=== PATIENT | female | born 1990 | race Caucasian/White ===

== ENCOUNTER → 2018-07-06 | Outpatient (CLI) | payer BC ==
--- NOTE | 2018-07-06 14:57 | Diagnostic Imaging Report ---
PROCEDURE: CT head without contrast. TECHNIQUE: Multiple contiguous axial images were obtained through the brain without the use of intravenous contrast. INDICATION: Migraine headache. FINDINGS: The ventricles and sulci are within normal limits. There is no hydrocephalus or cerebral edema. There is no midline shift or mass effect. There is no intracranial mass, hemorrhage, or extra-axial fluid collection. The visualized paranasal sinuses and mastoid air cells are clear. There are no regional areas of decreased attenuation appreciated to suggest an acute CVA. IMPRESSION: No acute intracranial abnormality. Dictated by: Dictated on workstation # [id number]
== END ==
LOC: RAD FS 14:30
PROVIDERS: ATTEND Nurse Practitioner Family
DX: G43.001 Migraine without aura, not intractable, with status migrainosus (principal)
CPT/HCPCS: 70450

== ENCOUNTER 2018-10-18 14:00 | Outpatient (CLI) | payer BC | END 2018-10-18 14:30 | disposition home or self-care (01) | LOC: SLEEP 14:00 | PROVIDERS: ATTEND Psychiatry & Neurology Neurology | DX: G47.33 Obstructive sleep apnea (adult) (pediatric) (principal) ==

== ENCOUNTER 2019-02-22 12:54 | Emergency (ER) | payer BC ==
[~2019-02-22] VITALS: Ht 157.4 cm; Wt 111.3 kg
[2019-02-22 13:23] LABS: BACTERIA,URINE MODERATE /HPF; BILIRUBIN,URINE NEGATIVE (NEGATIVE); CLARITY,URINE SL CLOUDY; COLOR,URINE YELLOW; GLUCOSE, URINE (UA) NEGATIVE (NEGATIVE); HCG,QUALITATIVE URINE NEGATIVE (NEGATIVE); KETONES,URINE NEGATIVE (NEGATIVE); LEUKOCYTE ESTERASE ,URINE TRACE (NEGATIVE); NITRITE,URINE NEGATIVE (NEGATIVE); PROTEIN,URINE NEGATIVE (NEGATIVE)
--- NOTE | 2019-02-22 13:59 | ED Abdominal Pain ---
General Chief Complaint: Abdominal/GI Problems Stated Complaint: LT SIDED ABD PAIN Source of Information: Patient History of Present Illness Date Seen by Provider: Feb 22, 2019 Time Seen by Provider: 13:59 Initial Comments 28-year-old female with left flank pain that has been present since Thursday night. This is been getting more severe to the point that today she tried going to the clinic. Because the pain was so severe at the clinic they referred her to the emergency department. She has not had pain like this before. She denies seeing any blood in her stool. She has been having diarrhea since Thursday when th e pain started. She last had a menstrual period week ago. She has not been having any vaginal discharge or bleeding. She denies any pain with urination. She has abdominal cramping and sharp pains in the left flank. She has had some subjective fever and chills. She has tried ibuprofen with no improvement in her pain. She has not taken anything today for pain. She has nausea but no vomiting. The pain is worse with movement. Allergies and Home Medications Allergies Coded Allergies: No Known Drug Allergies (Unverified , 02/22/19) Home Medications Hydrocodone/Acetaminophen 1 Each Tablet, 0.5-1 EACH PO Q4H PRN for PAIN-SEVERE Prescribed by: ANANDA DELUCA on 02/22/19 1622 Tamsulosin HCl 0.4 Mg Cap, 0.4 MG PO DAILY Prescribed by: ANANDA DELUCA on 02/22/19 1622 Patient Home Medication List Home Medication List Reviewed: Yes Review of Systems Review of Systems Constitutional: chills, fever (subjective) EENTM: No Symptoms Reported Respiratory: No Symptoms Reported Cardiovascular: No Symptoms Reported Gastrointestinal: See HPI Genitourinary: No Symptoms Reported Musculoskeletal: no symptoms reported Skin: no symptoms reported Psychiatric/Neurological: No Symptoms Reported Endocrine: No Symptoms Reported Past Ckjzbrk-Xrrgya-Rmaxyy Hx Past Med/Social Hx: Reviewed Nursing Past Med/Soc Hx Patient Social History Recent Foreign Travel: No Physical Exam Vital Signs Vital Signs - First Documented 02/22/19 13:05 Temp 37.3 Pulse 112 Resp 18 B/P (MAP) 153/90 (111) Pulse Ox 96 O2 Delivery Room Air Capillary Refill : Height/Weight/BMI Height: '" Weight: lbs. oz. kg; BMI Method: General Appearance: WD/WN, moderate distress (complaining of pain in the left flank and tearful at times due to the pain), obese HEENT: PERRL/EOMI, pharynx normal Neck: non-tender, full range of motion, supple, normal inspection Respiratory: chest non-tender, lungs clear, normal breath sounds Cardiovascular: normal peripheral pulses, regular rate, rhythm Gastrointestinal: soft; No no pulsatile mass; abnormal bowel sounds (hypoactive), tenderness (left flank) Rectal: deferred Extremities: normal range of motion, non-tender, normal capillary refill Neurologic/Psychiatric: alert, normal mood/affect, oriented x 3 Skin: normal color, warm/dry Progress/Results/Core Measures Results/Orders Lab Results Laboratory Tests Test 02/22/19 13:05 02/22/19 13:45 Range/Units Urine Color YELLOW Urine Clarity SL CLOUDY Urine pH 6.0 5-9 Urine Specific [place] 1.202 1.016-1.022 Urine Protein NEGATIVE NEGATIVE Urine Glucose (UA) NEGATIVE NEGATIVE Urine Ketones NEGATIVE NEGATIVE Urine Nitrite NEGATIVE NEGATIVE Urine Bilirubin NEGATIVE NEGATIVE Urine Urobilinogen 0.2 NORMAL MG/DL Urine Leukocyte Esterase TRACE NEGATIVE Urine RBC (Auto) NEGATIVE NEGATIVE Urine RBC NONE /HPF Urine WBC 2-5 /HPF Urine Squamous Epithelial Cells 10-25 H /HPF Urine Crystals NONE /LPF Urine Bacteria MODERATE H /HPF Urine Casts NONE /LPF Urine Mucus NEGATIVE /LPF Urine Culture Indicated NO Urine Test NEGATIVE NEGATIVE White Blood Count 9.2 4.3-11.0 10^3/uL Red Blood Count 5.96 H 4.35-5.85 10^6/uL Hemoglobin 12.2 11.5-16.0 G/DL Hematocrit 39 35-52 % Mean Corpuscular Volume 66 L 80-99 FL Mean Corpuscular Hemoglobin 20 L 25-34 PG Mean Corpuscular Hemoglobin Concent 31 L 32-36 G/DL Red Cell Distribution Width 15.9 H 10.0-14.5 % Platelet Count 266 130-400 10^3/uL Mean Platelet Volume 10.5 H 7.4-10.4 FL Neutrophils (%) (Auto) 64 42-75 % Lymphocytes (%) (Auto) 27 12-44 % Monocytes (%) (Auto) 7 0-12 % Eosinophils (%) (Auto) 2 0-10 % Basophils (%) (Auto) 0 0-10 % Neutrophils # (Auto) 5.8 1.8-7.8 X 10^3 Lymphocytes # (Auto) 2.5 1.0-4.0 X 10^3 Monocytes # (Auto) 0.6 0.0-1.0 X 10^3 Eosinophils # (Auto) 0.2 0.0-0.3 10^3/uL Basophils # (Auto) 0.0 0.0-0.1 10^3/uL Sodium Level 139 135-145 MMOL/L Potassium Level 3.8 3.6-5.0 MMOL/L Chloride Level 103 98-107 MMOL/L Carbon Dioxide Level 24 21-32 MMOL/L Anion Gap 12 5-14 MMOL/L Blood Urea Nitrogen 8 7-18 MG/DL Creatinine 0.49 L 0.60-1.30 MG/DL Estimat Glomerular Filtration Rate > 60 BUN/Creatinine Ratio 16 Glucose Level 94 70-105 MG/DL Calcium Level 8.7 8.5-10.1 MG/DL Corrected Calcium 8.6 8.5-10.1 MG/DL Total Bilirubin 0.2 0.1-1.0 MG/DL Aspartate Amino Transf (AST/SGOT) 45 H 5-34 U/L Alanine Aminotransferase (ALT/SGPT) 83 H 0-55 U/L Alkaline Phosphatase 92 40-136 U/L Total Protein 7.0 6.4-8.2 GM/DL Albumin 4.1 3.2-4.5 GM/DL Lipase 32 8-78 U/L My Orders Orders - ANANDA DELUCA MD Ua Culture If Indicated (02/22/19 13:08) Hcg,Qualitative Urine (02/22/19 13:08) Comprehensive Metabolic Panel (02/22/19 13:55) Lipase (02/22/19 13:55) Ed Iv/Invasive Line Start (02/22/19 13:55) Cbc With Automated Diff (02/22/19 13:55) Ct Abdomen/Pelvis Wo (02/22/19 13:55) Ketorolac Injection (Toradol Injection) (02/22/19 14:11) Fentanyl Injection (Sublimaze Injection (02/22/19 14:11) Ns Iv 1000 Ml (Sodium Chloride 0.9%) (02/22/19 14:12) Vital Signs/I&O 02/22/19 02/22/19 02/22/195/19 13:05 14:21 14:22 16:37 Temp 37.3 37.3 37.3 37.3 Pulse 112 87 Resp 18 18 B/P (MAP) 153/90 (111) 145/87 (111) Pulse Ox 96 96 O2 Delivery Room Air Progress Progress Note #1: Progress Note Obtain basic labs, urine and with this. Left flank pain will obtain a CT scan of the abdomen and pelvis to evaluate for pathology causing the pain. With the CT scan could evaluate to see if this was kidney stone versus ovarian cyst versus mass versus colitis or diverticulitis that might be causing her pain and symptoms. We will try IV fluids for hydration and Toradol in combination with fentanyl for her severe pain. Zofran for nausea Progress Note #2: Progress Note Labs did not show any acute significant abnormality. Urine does not show any infection. CT scan demonstrates kidney stone but no signs of obstruction or blockage. No acute intestinal abnormality. On recheck of the patient her symptoms are improved with treatment in the ED. Will have her continue pushing fluids at home and treat with medication for kidney stones. Advised to check back through the clinic and urology for continued symptoms Diagnostic Imaging Diagonstic Imaging: CT Plain Films/CT/US/NM/MRI: abdomen, pelvis Comments NAME: GENEVA BUTLER [facility] REC#: [id number] PT STATUS: DEP ER : 1990 PHYSICIAN: ANANDA DELUCA MD ADMIT DATE: 02/22/19/ER FS Signed POSDate of Exam:02/22/19 CT ABDOMEN/PELVIS WO PROCEDURE: CT abdomen and pelvis without contrast. TECHNIQUE: Multiple contiguous axial images were obtained through the abdomen and pelvis without the use of intravenous contrast. Auto Exposure Controls were utilized during the CT exam to meet ALARA standards for radiation dose reduction. INDICATION: Left-sided abdominal pain four days in duration. COMPARISON: I have no previous for comparison. FINDINGS: Hypodense liver is consistent with fatty infiltration. Gallbladder is surgically absent. No pathological biliary distention. The pancreas appears normal. The adrenals are negative. There is no hydroureteronephrosis. There is a punctate tiny nonobstructing stone of 2 mm within a right lower pole calyx. No radiodense ureteral stone. The unopacified urinary bladder has an unremarkable appearance. No perinephric or periureteric edema. Aorta is nonaneurysmal. The spleen is negative. There is no bowel obstruction. There is no appendicitis or diverticulitis. Trace free fluid in the pelvic cul-de-sac is within physiologic limits for a female patient of this age. The uterus and adnexa are unremarkable. The osseous structures and the lung bases appear nonacute. IMPRESSION: 1. Punctate nonobstructing right renal calculus. 2. Mild hepatic steatosis. 3. Prior cholecystectomy. 4. Trace pelvic free fluid believed physiologic. 5. No convincing evidence for an acute abdominopelvic abnormality. Dictated by: Dictated on workstation # [id number] Dict: 02/22/19 1506 Trans: 02/22/198 [id number] Interpreted by: RAYMOND MORALES Electronically signed by: RAYMOND MORALES 02/22/19 1658 Departure Impression Primary Impression: Renal colic on left side Additional Impression: Calculus of distal left ureter Disposition: HOME, SELF-CARE Condition: Stable Departure-Patient Inst. Decision time for Depature: 16:18 Referrals: MARLON FREEMAN MD (PCP) Primary Care Physician MARCIE MUÑOZ APRN (Family) Primary Care Physician AMELIA NUÑEZ MD Patient Instructions: How to Strain Your Urine, Kidney Stone Diet, Kidney Stones (DC), Renal Colic (DC) Add. Discharge Instructions: Stay well hydrated and make sure you are drinking plenty of water. Avoid carbonated and caffeinated drinks. Strain your urine to see when you pass the stone. Follow up with a Urologist for continued pain or if not improving. Otherwise check with your primary provider. All discharge instructions reviewed with patient and/or family. Voiced understanding. Scripts Tamsulosin HCl (Flomax) 0.4 Mg Cap 0.4 MG PO DAILY for 7 Days, #7 CAP 0 Refills Prov: ANANDA DELUCA MD 02/22/19 Hydrocodone/Acetaminophen (Hydrocodon-Acetaminophn 10-325) 1 Each Tablet 0.5-1 EACH PO Q4H PRN for PAIN-SEVERE MDD 5 for 3 Days, #20 TAB 0 Refills Prov: ANANDA DELUCA MD 02/22/19 Work/School Note: Work Release Form Date Seen in the Emergency Department: Feb 22, 2019 Return to Work: Feb 24, 2019 Restrictions: No Restrictions ANANDA DELUCA MD Feb 22, 2019 13:59 POS
[2019-02-22] MEDS ORDERED: fentaNYL INJECTION 100 MCG/2 ML AMP IVP STA (14:11)
[2019-02-22] MEDS ORDERED: KETOROLAC 30 MG/ML VIAL IVP STA (14:11)
[2019-02-22 14:12] LABS: HEMATOCRIT 39 % (35-52); HEMOGLOBIN 12.2 G/DL (11.5-16.0); MEAN CORPUSCULAR HEMOGLOBIN 20 PG (25-34); WHITE BLOOD COUNT 9.2 10^3/uL (4.3-11.0)
[2019-02-22] MEDS ORDERED: NS IV 1000 ML 1,000 ML IV STA (14:12)
[2019-02-22 14:13] LABS: BASOPHILS % (AUTO) 0 % (0-10); EOSINOPHILS # (AUTO) 0.2 10^3/uL (0.0-0.3); EOSINOPHILS % (AUTO) 2 % (0-10); LYMPHOCYTES # (AUTO) 2.5 X 10^3 (1.0-4.0); LYMPHOCYTES % (AUTO) 27 % (12-44); MEAN CORPUSCULAR HGB CONC 31 G/DL (32-36); MEAN CORPUSCULAR VOLUME 66 FL (80-99); MEAN PLATELET VOLUME 10.5 FL (7.4-10.4); MONOCYTES # (AUTO) 0.6 X 10^3 (0.0-1.0); MONOCYTES % (AUTO) 7 % (0-12); NEUTROPHILS # (AUTO) 5.8 X 10^3 (1.8-7.8); NEUTROPHILS % (AUTO) 64 % (42-75); PLATELET COUNT 266 10^3/uL (130-400); RED CELL DISTRIBUTION WIDTH 15.9 % (10.0-14.5)
[2019-02-22 14:16] LABS: ALANINE AMINOTRANSFERASE 83 U/L (0-55); ALBUMIN 4.1 GM/DL (3.2-4.5); ALKALINE PHOSPHATASE 92 U/L (40-136); BILIRUBIN,TOTAL 0.2 MG/DL (0.1-1.0); BUN/CREATININE RATIO 16; CALCIUM 8.7 MG/DL (8.5-10.1); CARBON DIOXIDE 24 MMOL/L (21-32); CHLORIDE 103 MMOL/L (98-107); CREATININE SERUM 0.49 MG/DL (0.60-1.30); GFR ESTIMATED > 60; GLUCOSE 94 MG/DL (70-105); LIPASE 32 U/L (8-78); POTASSIUM 3.8 MMOL/L (3.6-5.0); SODIUM 139 MMOL/L (135-145)
--- NOTE | 2019-02-22 15:23 | Diagnostic Imaging Report ---
PROCEDURE: CT abdomen and pelvis without contrast. TECHNIQUE: Multiple contiguous axial images were obtained through the abdomen and pelvis without the use of intravenous contrast. Auto Exposure Controls were utilized during the CT exam to meet ALARA standards for radiation dose reduction. INDICATION: Left-sided abdominal pain four days in duration. COMPARISON: I have no previous for comparison. FINDINGS: Hypodense liver is consistent with fatty infiltration. Gallbladder is surgically absent. No pathological biliary distention. The pancreas appears normal. The adrenals are negative. There is no hydroureteronephrosis. There is a punctate tiny nonobstructing stone of 2 mm within a right lower pole calyx. No radiodense ureteral stone. The unopacified urinary bladder has an unremarkable appearance. No perinephric or periureteric edema. Aorta is nonaneurysmal. The spleen is negative. There is no bowel obstruction. There is no appendicitis or diverticulitis. Trace free fluid in the pelvic cul-de-sac is within physiologic limits for a female patient of this age. The uterus and adnexa are unremarkable. The osseous structures and the lung bases appear nonacute. IMPRESSION: 1. Punctate nonobstructing right renal calculus. 2. Mild hepatic steatosis. 3. Prior cholecystectomy. 4. Trace pelvic free fluid believed physiologic. 5. No convincing evidence for an acute abdominopelvic abnormality. Dictated by: Dictated on workstation # [id number]
[2019-02-22] MEDS ORDERED: TAMS0.4C98 PO (16:22)
[2019-02-22] MEDS ORDERED: HYDR-3820 PO (16:22)
[2019-02-22 16:37] VITALS: BP 145/87
== END 2019-02-22 16:36 | disposition home or self-care (01) ==
LOC: EDUNIT# 12:54 → ER FS 12:56
DX: N20.1 Calculus of ureter (principal)
CPT/HCPCS: 36415; 74176; 80053; 81000; 83690; 84703; 85025

== ENCOUNTER 2019-03-12 00:31 | Emergency (ER) | payer BC ==
[~2019-03-12] VITALS: Ht 157.4 cm; Wt 111.9 kg
[~2019-03-12 00:31] MED LIST: HYDR-3820 PO; TAMS0.4C98 PO
[2019-03-12] MEDS ORDERED: ONDANSETRON 4 MG/2 ML (SDV) Z0FRAN IVP ONE (00:45)
[2019-03-12] MEDS ORDERED: FAMOTIDINE 20MG/2ML IV (PEPCID) IVP ONE (00:45)
[2019-03-12] MEDS ORDERED: NS IV 500 ML 500 ML IV SCH (00:45)
[2019-03-12] MEDS ORDERED: ANTACID SUSP 30 ML UDC (MYLANTA) ONE (00:53)
[2019-03-12] MEDS ORDERED: LIDOCAINE 2% VISCOUS 15 ML UDC ONE (00:53)
--- NOTE | 2019-03-12 00:56 | ED GI ---
General Chief Complaint: Abdominal/GI Problems Stated Complaint: ABD PAIN Nursing Triage Note: Patient states that she came into the ER on 02/22/19 with abdominal pain. Patient was diagnosed with kidney stones and sent home. Patient states that the pain subsided over the next few days. Patient states that she had been straining her urine and hasn't passed any stones to her knowledge. Patient states that the pain came back yesterdday and had progressively gotten worse. Patient is complaining of diffuse abdominal pain that radiates to her flanks. Patient is rating her pain at a 10 on the 1-10 pain scale. Sepsis Screen: No Definite Risk Source of Information: Patient Exam Limitations: No Limitations History of Present Illness Date Seen by Provider: Mar 12, 2019 Time Seen by Provider: 00:45 Initial Comments upper abdominal pain onset today. Seen for similar pain a week ago in this ER and told she may be passing kidney stones. Straining her urine without passage of a stone. Pain had completely resolved. Some nausea, taking motrin and h ydrocodone. No fever or chills. Allergies and Home Medications Allergies Coded Allergies: No Known Drug Allergies (Unverified , 02/22/19) Home Medications Famotidine 20 Mg Tablet, 20 MG PO BID Prescribed by: LA VILLATOROSTBEATRIZ on 03/12/19 0138 Hydrocodone/Acetaminophen 1 Each Tablet, 0.5-1 EACH PO Q4H PRN for PAIN-SEVERE Prescribed by: ANANDA DELUCA on 02/22/19 1622 Hyoscyamine Sulfate 0.125 Mg Tab.subl, 0.125 MG SL BID PRN PRN for CRAMPS Prescribed by: LA VILLATOROSTBEATRIZ on 03/12/19 0138 Tamsulosin HCl 0.4 Mg Cap, 0.4 MG PO DAILY Prescribed by: ANANDA DELUCA on 02/22/19 1622 Patient Home Medication List Home Medication List Reviewed: Yes Review of Systems Review of Systems Constitutional: No chills, No diaphoresis, No fever, No malaise, No weakness, No weight loss Respiratory: Denies Cough, Denies Orthopnea Cardiovascular: Denies Chest Pain, Denies Lightheadedness, Denies Palpitations, Denies Syncope Gastrointestinal: See HPI; Denies Abdomen Distended; Abdominal Pain; Denies Constipated, Denies Diarrhea, Denies Difficulty Swallowing; Nausea; Denies Poor Appetite, Denies Poor Fluid Intake, Denies Rectal Bleeding, Denies Vomiting Genitourinary: See HPI; Denies Burning, Denies Discharge, Denies Drainage, Denies Frequency, Denies Flank Pain, Denies Hematuria, Denies Incontinence, Denies Pain, Denies Urgency Musculoskeletal: back pain; No joint pain, No joint swelling, No muscle pain Past Ynsfxwg-Rntqat-Aicvws Hx Past Med/Social Hx: Reviewed Nursing Past Med/Soc Hx Patient Social History Type Used: Cigarettes 2nd Hand Smoke Exposure: No Recent Foreign Travel: No Contact w/Someone Who Travel: No Recent Infectious Disease Expo: No Recent Hopitalizations: No Physical Abuse: No Sexual Abuse: No Mistreated: No Fear: No Seasonal Allergies Seasonal Allergies: No Past Medical History Surgeries: Yes Gallbladder Respiratory: No Cardiac: No Neurological: Yes Headaches /Migraines Female Reproductive Disorders: Ovarian Cyst Genitourinary: No Gastrointestinal: No Musculoskeletal: No Endocrine: No HEENT: No Cancer: No Psychosocial: No Integumentary: No Blood Disorders: No Physical Exam Vital Signs Vital Signs - First Documented 03/12/19 00:34 Temp 36.7 Pulse 86 Resp 22 B/P (MAP) 149/84 (105) Pulse Ox 98 O2 Delivery Room Air Capillary Refill : Less Than 3 Seconds Height/Weight/BMI Height: '" Weight: lbs. oz. kg; 45.00 BMI Method: General Appearance: WD/WN, no apparent distress, other (lying still and crying) Respiratory: chest non-tender, lungs clear, normal breath sounds Cardiovascular: regular rate, rhythm, no edema, no gallop Gastrointestinal: normal bowel sounds, soft, no organomegaly, no pulsatile m ass; No distended, No guarding, No rebound; tenderness (to deep palpation - epigastric ); No mass, No hepatomegaly, No spleenomegaly Back: normal inspection, no CVA tenderness, no vertebral tenderness; No CVA tenderness (R), No CVA tenderness (L), No decreased range of motion, No muscle spasm, No vertebral tenderness Skin: normal color, warm/dry Progress/Results/Core Measures Results/Orders Lab Results Laboratory Tests Test 03/12/19 00:39 Range/Units White Blood Count 15.3 H 4.3-11.0 10^3/uL Red Blood Count 6.19 H 4.35-5.85 10^6/uL Hemoglobin 12.7 11.5-16.0 G/DL Hematocrit 41 35-52 % Mean Corpuscular Volume 67 L 80-99 FL Mean Corpuscular Hemoglobin 21 L 25-34 PG Mean Corpuscular Hemoglobin Concent 31 L 32-36 G/DL Red Cell Distribution Width 16.1 H 10.0-14.5 % Platelet Count 366 130-400 10^3/uL Mean Platelet Volume 9.9 7.4-10.4 FL Neutrophils (%) (Auto) 69 42-75 % Lymphocytes (%) (Auto) 23 12-44 % Monocytes (%) (Auto) 6 0-12 % Eosinophils (%) (Auto) 1 0-10 % Basophils (%) (Auto) 1 0-10 % Neutrophils # (Auto) 10.5 H 1.8-7.8 X 10^3 Lymphocytes # (Auto) 3.5 1.0-4.0 X 10^3 Monocytes # (Auto) 0.9 0.0-1.0 X 10^3 Eosinophils # (Auto) 0.2 0.0-0.3 10^3/uL Basophils # (Auto) 0.1 0.0-0.1 10^3/uL Neutrophils % (Manual) 72 % Lymphocytes % (Manual) 16 % Monocytes % (Manual) 6 % Eosinophils % (Manual) 1 % Band Neutrophils 1 % Reactive Lymphocytes 4 % Microcytosis MARKED Target Cells SLIGHT Elliptocytes SLIGHT Urine Color YELLOW Urine Clarity CLOUDY Urine pH 6.0 5-9 Urine Specific [place] 1.025 H 1.016-1.022 Urine Protein NEGATIVE NEGATIVE Urine Glucose (UA) NEGATIVE NEGATIVE Urine Ketones NEGATIVE NEGATIVE Urine Nitrite NEGATIVE NEGATIVE Urine Bilirubin NEGATIVE NEGATIVE Urine Urobilinogen 0.2 < = 1.0 MG/DL Urine Leukocyte Esterase TRACE NEGATIVE Urine RBC (Auto) NEGATIVE NEGATIVE Urine RBC NONE /HPF Urine WBC 5-10 H /HPF Urine Squamous Epithelial Cells 10-25 H /HPF Urine Crystals NONE /LPF Urine Bacteria TRACE /HPF Urine Casts NONE /LPF Urine Mucus NEGATIVE /LPF Urine Culture Indicated NO Sodium Level 140 135-145 MMOL/L Potassium Level 4.4 3.6-5.0 MMOL/L Chloride Level 100 98-107 MMOL/L Carbon Dioxide Level 25 21-32 MMOL/L Anion Gap 15 H 5-14 MMOL/L Blood Urea Nitrogen 15 7-18 MG/DL Creatinine 0.64 0.60-1.30 MG/DL Estimat Glomerular Filtration Rate > 60 BUN/Creatinine Ratio 23 Glucose Level 134 H 70-105 MG/DL Calcium Level 9.6 8.5-10.1 MG/DL Corrected Calcium 8.5-10.1 MG/DL Total Bilirubin 0.3 0.1-1.0 MG/DL Aspartate Amino Transf (AST/SGOT) 23 5-34 U/L Alanine Aminotransferase (ALT/SGPT) 43 0-55 U/L Alkaline Phosphatase 90 40-136 U/L Total Protein 7.9 6.4-8.2 GM/DL Albumin 4.6 H 3.2-4.5 GM/DL My Orders Orders - LA HARRELL DO Ed Iv/Invasive Line Start (03/12/19 00:43) Famotidine Injection (Pepcid Injection) (03/12/19 00:45) Ondansetron Injection (Zofran Injectio (03/12/19 00:45) Ns Iv 500 Ml (Sodium Chloride 0.9%) (03/12/19 00:45) Abdomen Flat & Upright/Decub (03/12/19 00:48) Lidocaine 2% Viscous 15 Ml (Xylocaine Vi (03/12/19 01:00) Antacid Suspension (Mylanta Suspension (03/12/19 01:00) Urine Bedside (03/12/19 00:52) Ua Culture If Indicated (03/12/19 00:52) Lidocaine 2% Viscous 15 Ml (Xylocaine Vi (03/12/19 00:53) Antacid Suspension (Mylanta Suspension (03/12/19 00:53) Fentanyl Injection (Sublimaze Injection (03/12/19 01:00) Cbc With Automated Diff (03/12/19 00:57) Comprehensive Metabolic Panel (03/12/19 00:57) Fentanyl Injection (Sublimaze Injection (03/12/19 00:59) Fentanyl Injection (Sublimaze Injection (03/12/19 01:15) Manual Differential (03/12/19 00:39) Medications Given in ED Current Medications Medications Dose Ordered Sig/David Route Start Time Stop Time Status Last Admin Dose Admin Al Hydrox/Mg Hydrox/Simethicone 30 ml ONCE ONCE PO 03/12/19 01:00 03/12/19 01:01 DC 03/12/19 01:04 30 ML Famotidine 20 mg ONCE ONCE IVP 03/12/19 00:45 03/12/19 00:49 DC 03/12/19 00:54 20 MG Fentanyl Citrate 50 mcg ONCE ONCE IVP 03/12/19 01:00 03/12/19 01:01 DC 03/12/19 01:04 50 MCG Lidocaine HCl 15 ml ONCE ONCE PO 03/12/19 01:00 03/12/19 01:01 DC 03/12/19 01:04 15 ML Ondansetron HCl 4 mg ONCE ONCE IVP 03/12/19 00:45 03/12/19 00:49 DC 03/12/19 00:54 4 MG Vital Signs/I&O 03/12/19 00:34 Temp 36.7 Pulse 86 Resp 22 B/P (MAP) 149/84 (105) Pulse Ox 98 O2 Delivery Room Air Blood Pressure Mean: 105 POS Progress Progress Note : Time: 01:40 Progress Note pain improved p tx given migrating pain to mid abdomen now. Likely functional / gas pain. will treat for possible gastritis. advised no NSAIDS and trial of H2 glenna and f/u w PCP 1 wk. Departure Impression Primary Impression: Abdominal pain Qualified Codes: R10.13 - Epigastric pain Disposition: HOME, SELF-CARE Condition: Improved Departure-Patient Inst. Decision time for Depature: 01:39 Referrals: MARLON FREEMAN MD (PCP) Primary Care Physician MARCIE MUÑOZ APRN (Family) Primary Care Physician Patient Instructions: Acute Abdomen (Belly Pain), Adult (DC) Scripts Hyoscyamine Sulfate (Levsin-Sl) 0.125 Mg Tab.subl 0.125 MG SL BID PRN PRN for CRAMPS, #10 TAB Prov: WAYNEVENSTINELA L DO 03/12/19 Famotidine (Pepcid) 20 Mg Tablet 20 MG PO BID, #30 TAB Prov: ROVENSTINEMARIELLALA L DO 03/12/19 ROVENSTINELA L DO Mar 12, 2019 00:55 POS
[2019-03-12] MEDS ORDERED: fentaNYL INJECTION 100 MCG/2 ML AMP ONE (00:59)
[2019-03-12] MEDS ORDERED: LIDOCAINE 2% VISCOUS 15 ML UDC PO ONE (01:00)
[2019-03-12] MEDS ORDERED: ANTACID SUSP 30 ML UDC (MYLANTA) PO ONE (01:00)
[2019-03-12] MEDS ORDERED: fentaNYL INJECTION 100 MCG/2 ML AMP IVP ONE ×2 (01:00→01:15)
[2019-03-12 01:05] LABS: BASOPHILS # (AUTO) 0.1 10^3/uL (0.0-0.1); BASOPHILS % (AUTO) 1 % (0-10); EOSINOPHILS # (AUTO) 0.2 10^3/uL (0.0-0.3); EOSINOPHILS % (AUTO) 1 % (0-10); HEMATOCRIT 41 % (35-52); HEMOGLOBIN 12.7 G/DL (11.5-16.0); LYMPHOCYTES # (AUTO) 3.5 X 10^3 (1.0-4.0); LYMPHOCYTES % (AUTO) 23 % (12-44); MEAN CORPUSCULAR HEMOGLOBIN 21 PG (25-34); MEAN CORPUSCULAR HGB CONC 31 G/DL (32-36); MEAN CORPUSCULAR VOLUME 67 FL (80-99); MEAN PLATELET VOLUME 9.9 FL (7.4-10.4); MONOCYTES # (AUTO) 0.9 X 10^3 (0.0-1.0); MONOCYTES % (AUTO) 6 % (0-12); NEUTROPHILS # (AUTO) 10.5 X 10^3 (1.8-7.8); NEUTROPHILS % (AUTO) 69 % (42-75); PLATELET COUNT 366 10^3/uL (130-400); RED CELL DISTRIBUTION WIDTH 16.1 % (10.0-14.5); WHITE BLOOD COUNT 15.3 10^3/uL (4.3-11.0)
[2019-03-12 01:07] LABS: CHLORIDE 100 MMOL/L (98-107); POTASSIUM 4.4 MMOL/L (3.6-5.0); SODIUM 140 MMOL/L (135-145)
[2019-03-12 01:08] LABS: ALANINE AMINOTRANSFERASE 43 U/L (0-55); ALBUMIN 4.6 GM/DL (3.2-4.5); ALKALINE PHOSPHATASE 90 U/L (40-136); BILIRUBIN,TOTAL 0.3 MG/DL (0.1-1.0); BUN/CREATININE RATIO 23; CALCIUM 9.6 MG/DL (8.5-10.1); CARBON DIOXIDE 25 MMOL/L (21-32); CREATININE SERUM 0.64 MG/DL (0.60-1.30); GFR ESTIMATED > 60; GLUCOSE 134 MG/DL (70-105); TOTAL PROTEIN 7.9 GM/DL (6.4-8.2)
[2019-03-12 01:09] LABS: BILIRUBIN,URINE NEGATIVE (NEGATIVE); CLARITY,URINE CLOUDY; COLOR,URINE YELLOW; GLUCOSE, URINE (UA) NEGATIVE (NEGATIVE); KETONES,URINE NEGATIVE (NEGATIVE); LEUKOCYTE ESTERASE ,URINE TRACE (NEGATIVE); NITRITE,URINE NEGATIVE (NEGATIVE); PROTEIN,URINE NEGATIVE (NEGATIVE)
[2019-03-12 01:19] LABS: BACTERIA,URINE TRACE /HPF
[2019-03-12 01:20] LABS: BAND NEUTROPHILS 1 %; EOSINOPHILS % (MANUAL) 1 %; LYMPHOCYTES % (MANUAL) 16 %; MONOCYTES % (MANUAL) 6 %; NEUTROPHILS % (MANUAL) 72 %; REACTIVE LYMPHOCYTES 4 %
[2019-03-12 01:21] LABS: ELLIPT/OVALOCYTES SLIGHT; MICROCYTOSIS MARKED; TARGET CELLS SLIGHT
[2019-03-12] MEDS ORDERED: FAMO-119 PO (01:38)
[2019-03-12] MEDS ORDERED: HYOS0.1283 SL (01:38)
[2019-03-12 01:41] VITALS: BP 149/84
--- NOTE | 2019-03-12 07:18 | Diagnostic Imaging Report ---
INDICATION: Pain. The bowel gas pattern appears normal. No suspicious calcifications. No evidence of obstruction. IMPRESSION: Unremarkable abdominal radiographs Dictated by: Dictated on workstation # [id number]
== END 2019-03-12 01:41 | disposition home or self-care (01) ==
LOC: EDUNIT# 00:31 → ER FS 00:32
DX: R10.13 Epigastric pain (principal); G43.909 Migraine, unspecified, not intractable, without status migrainosus
CPT/HCPCS: 36415; 74019; 80053; 81000; 84703; 85007; 85027; 87088

== ENCOUNTER → 2021-10-25 | Outpatient (CLI) | payer BC, OTHER ==
[~2021-10-25] MED LIST changes: +ACHYD1T PO; +FAMO-119 PO; -HYDR-3820 PO; +HYOS0.1283 SL; -TAMS0.4C98 PO; +TMSL.4C PO
--- NOTE | 2021-10-25 15:23 | Diagnostic Imaging Report ---
PROCEDURE: MRI lumbar spine. TECHNIQUE: Multiplanar, multisequence MRI of the lumbar spine was performed without contrast. INDICATION: Low back pain. COMPARISON: None. FINDINGS: Normal alignment. Vertebral body heights are preserved. Modic type II degenerative endplate changes at L4-L5. No abnormal signal in the conus which terminates at L1. Normal morphology of the cauda equina. Visualized pelvis and paravertebral soft tissues are unremarkable. L1-L2: Normal. L2-L3: Normal. L3-L4: Mild disc desiccation and facet arthropathy. Mild spinal canal and bilateral lateral recess narrowing. No neural foraminal narrowing. L4-L5: Left paracentral disc extrusion results in severe left lateral recess and neural foraminal narrowing. There is also rligopxh-oz-bizrzl spinal canal stenosis. Moderate right lateral recess and neural foraminal narrowing. L5-S1: Right foraminal disc extrusion results in severe right lateral recess and neural foraminal narrowing. Mild spinal canal narrowing. IMPRESSION: 1. Disc extrusion at L4-L5 results in tgoblfon-ik-vtdbuz spinal canal stenosis and severe left lateral recess and neural foraminal narrowing. There is also moderate right lateral recess and neural foraminal narrowing at this level. 2. Disc extrusion at L5-S1 results in severe right lateral recess and neural foraminal narrowing. 3. No acute osseous findings. Modic type II degenerative endplate changes at L4-L5. Dictated by: Dictated on workstation # [id number]
== END ==
LOC: RAD 13:44
PROVIDERS: ATTEND Physician Assistant
DX: M47.816 Spondylosis without myelopathy or radiculopathy, lumbar region (principal); M51.26 Other intervertebral disc displacement, lumbar region; M48.061 Spinal stenosis, lumbar region without neurogenic claudication; M51.27 Other intervertebral disc displacement, lumbosacral region; M48.07 Spinal stenosis, lumbosacral region
CPT/HCPCS: 72148